=== PATIENT | male | born 1970 | race Caucasian/White ===

== ENCOUNTER → 2019-07-17 | Outpatient (REF) | payer OTHER, BC | LOC: M SFHCPLAZ 17:08 | PROVIDERS: ATTEND Dermatology | DX: D49.2 Neoplasm of unspecified behavior of bone, soft tissue, and skin (principal) ==

== ENCOUNTER → 2019-08-13 | Outpatient (REF) | payer BC | LOC: M SMT 17:04 | PROVIDERS: ATTEND Dermatology | DX: C43.59 Malignant melanoma of other part of trunk (principal) ==

== ENCOUNTER → 2020-04-08 | Outpatient (REF) | payer BC ==
[2020-04-08 15:44] LABS: APPEARANCE, URINE CLEAR (CLEAR); BACTERIA, URINE AUTO NEGATIVE (NEGATIVE); BILIRUBIN, URINE AUTO NEGATIVE (NEGATIVE); BLOOD, URINE BLOOD NEGATIVE (NEGATIVE); COLOR, URINE YELLOW (YELLOW); GLUCOSE, URINE (UA) AUTO NEGATIVE (NEGATIVE); KETONE, URINE AUTO NEGATIVE (NEGATIVE); LEUKOCYTE ESTERASE, URINE AUTO NEGATIVE (NEGATIVE); NITRITE, URINE AUTO NEGATIVE (NEGATIVE); PROTEIN, URINE AUTO NEGATIVE (NEGATIVE); RBC, URINE AUTO 0 /HPF (0-3); SPECIFIC GRAVITY URINE AUTO 1.015 (1.002-1.035); SQUAMOUS EPITHELIAL CELL UR AU 0 /HPF (0-6); UROBILINOGEN, URINE AUTO 0.2 mg/dL (0.0-2.0); WBC, URINE AUTO 0 /HPF (0-3)
== END ==
LOC: M SMT 14:49
PROVIDERS: ATTEND Nurse Practitioner Family
DX: R35.0 Frequency of micturition (principal)

== ENCOUNTER → 2021-10-19 | Outpatient (CLI) | payer BC, SELFPAY ==
[~2021-10-19] MED LIST: SUMA100T2 PO
== END ==
LOC: M LABSMTC 09:41
PROVIDERS: ATTEND Anesthesiology
DX: Z01.818 Encounter for other preprocedural examination (principal); Z11.52 Encounter for screening for COVID-19

== ENCOUNTER 2021-10-24 10:34 | Day surgery (SDC) | payer BC ==
[~2021-10-24] VITALS: Ht 172.7 cm; Wt 75.8 kg
[~2021-10-24 10:34] MED LIST changes: +NS 1,000 ML IV ONE
[2021-10-24] MEDS ORDERED: propofoL 200 MG/20 ML VIAL As Ordered ONE ×2 (12:30→13:07)
[2021-10-24] MEDS ORDERED: LIDOCAINE 2% 100MG/5ML SDV (FOR ANES.) As Ordered ONE (12:30)
--- NOTE | 2021-10-24 13:31 | ROOR ---
Patient Name: Sheri Iniguez Procedure Date: 10/24/2021 12:42 PM Date of : 1970 Age: 51 Room: [facility] Gender: Male Note Status: Finalized Procedure: Colonoscopy Indications: Screening for colorectal malignant neoplasm, Incidental - Hematochezia Providers: Matt Amor MD Referring MD: SHERI MORA MD Requesting Provider: Medicines: Monitored Anesthesia Care Complications: No immediate complications. Procedure: Pre-Anesthesia Assessment: - Prior to the procedure, a History and Physical was performed, and patient medications and allergies were reviewed. The patient is competent. The risks and benefits of the procedure and the sedation options and risks were discussed with the patient. All questions were answered and informed consent was obtained. Patient identification and proposed procedure were verified by the physician, the nurse and the anesthesiologist in the procedure room. Mental Status Examination: alert and oriented. Airway Examination: normal oropharyngeal airway and neck mobility. Respiratory Examination: clear to auscultation. CV Examination: normal. Prophylactic Antibiotics: The patient does not require prophylactic antibiotics. Prior Anticoagulants: The patient has taken no previous anticoagulant or antiplatelet agents. ASA Grade Assessment: II - A patient with mild systemic disease. After reviewing the risks and benefits, the patient was deemed in satisfactory condition to undergo the procedure. The anesthesia plan was to use monitored anesthesia care (MAC). Immediately prior to administration of medications, the patient was re-assessed for adequacy to receive sedatives. The heart rate, respiratory rate, oxygen saturations, blood pressure, adequacy of pulmonary ventilation, and response to care were monitored throughout the procedure. The physical status of the patient was re-assessed after the procedure. The Colonoscope was introduced through the anus and advanced to the terminal ileum, with identification of the appendiceal orifice and IC valve. The colonoscopy was performed without difficulty. The patient tolerated the procedure well. The quality of the bowel preparation was good. The terminal ileum, ileocecal valve, appendiceal orifice, and rectum were photographed. Scope insertion time was 2 minutes. Scope withdrawal time was 9 minutes. The total duration of the procedure was 12 minutes. Findings: The perianal and digital rectal examinations were normal. The terminal ileum appeared normal. Three sessile polyps were found in the recto-sigmoid colon and ascending colon. The polyps were 5 to 12 mm in size. These polyps were removed with a hot snare. Resection and retrieval were complete. Verification of patient identification for the specimen was done by the physician and nurse using the patient's name, date and medical record number. Estimated blood loss was minimal. Non-bleeding external and internal hemorrhoids were found during retroflexion. The hemorrhoids were large. Impression: - The examined portion of the ileum was normal. - Three 5 to 12 mm polyps at the recto-sigmoid colon and in the ascending colon, removed with a hot snare. Resected and retrieved. - Non-bleeding external and internal hemorrhoids. Recommendation: - Patient has a contact number available for emergencies. The signs and symptoms of potential delayed complications were discussed with the patient. Return to normal activities tomorrow. Written discharge instructions were provided to the patient. - High fiber diet. - Continue present medications. - Use fiber, for example Citrucel, Fibercon, Konsyl or Metamucil. - Preparation H ointment: Apply externally daily for 5 days. - Await pathology results. - Repeat colonoscopy in 3 - 5 years for surveillance based on pathology results. - Telephone GI clinic for pathology results in 2 weeks. - Telephone GI clinic if symptomatic if persistent symptoms or new symptoms. - Return to primary care physician. Procedure Code(s): --- Professional --- 80502, Colonoscopy, flexible; with removal of tumor(s), polyp(s), or other lesion(s) by snare technique Diagnosis Code(s): --- Professional --- Z12.11, Encounter for screening for malignant neoplasm of colon K64.8, Other hemorrhoids K63.5, Polyp of colon CPT copyright 2019 [employer]. All rights reserved. The codes documented in this report are preliminary and upon customer solutions specialist review may be revised to meet current compliance requirements. Matt Amor MD Matt Amor MD 10/24/2021 1:31:02 PM Electronically signed by Matt Amor MD Number of Addenda: 0 Note Initiated On: 10/24/2021 12:42 PM Estimated Blood Loss: Estimated blood loss was minimal.
[2021-10-24 13:45] VITALS: BP 112/71
== END 2021-10-24 13:55 | disposition home or self-care (01) ==
LOC: M OPP 10:34
PROVIDERS: ATTEND Internal Medicine Gastroenterology
DX: Z12.11 Encounter for screening for malignant neoplasm of colon (principal); K63.5 Polyp of colon; K64.8 Other hemorrhoids; K62.5 Hemorrhage of anus and rectum; Z79.899 Other long term (current) drug therapy

== ENCOUNTER → 2022-12-04 | Outpatient (CLI) | payer BC, OTHER ==
[~2022-12-04] MED LIST changes: -NS 1,000 ML IV ONE
== END ==
LOC: M RAD 09:41
PROVIDERS: ATTEND Internal Medicine
DX: Z87.891 Personal history of nicotine dependence (principal)

== ENCOUNTER → 2024-09-09 | Outpatient (CLI) | payer OTHER ==
[~2024-09-09] MED LIST changes: +PROHANCE 279.3MG/ML 15ML VIAL As Ordered ONE
== END ==
LOC: M RAD 15:46
PROVIDERS: ATTEND Otolaryngology
DX: H93.3X2 Disorders of left acoustic nerve (principal)

== ENCOUNTER → 2025-08-20 | Outpatient (CLI) | payer OTHER ==
[~2025-08-20] MED LIST changes: -PROHANCE 279.3MG/ML 15ML VIAL As Ordered ONE
== END ==
LOC: M RAD 15:31
PROVIDERS: ATTEND Internal Medicine
DX: J43.9 Emphysema, unspecified (principal); F17.211 Nicotine dependence, cigarettes, in remission